=== PATIENT | male | born 2000 | race Caucasian/White ===

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

== ENCOUNTER 2023-04-05 21:52 | Emergency (ER) | payer BC ==
[~2023-04-05] VITALS: Ht 177.8 cm; Wt 72.6 kg
[~2023-04-05 21:52] MED LIST: HURRICAINE ONE1 EACH MT; QUET100 PO
[2023-04-05 22:15] VITALS: BP 125/82
[2023-04-05] MEDS ORDERED: CEPH500 PO (22:24)
== END 2023-04-05 22:40 | disposition home or self-care (01) ==
LOC: ER 21:52
DX: L03.115 Cellulitis of right lower limb (principal); F17.290 Nicotine dependence, other tobacco product, uncomplicated; Z79.899 Other long term (current) drug therapy
CPT/HCPCS: 99282; A9270

== ENCOUNTER → 2023-06-26 | Outpatient (CLI) | payer BC ==
[~2023-06-26] MED LIST changes: +CEPH500 PO
== END | disposition home or self-care (01) ==
LOC: LAB 17:45 → LAB SHORT 17:45
DX: L08.9 Local infection of the skin and subcutaneous tissue, unspecified (principal)
CPT/HCPCS: 87070; 87075; 87077; 87147; 87186; 87205

== ENCOUNTER 2025-05-25 16:17 | Emergency (ER) | payer BC ==
[~2025-05-25] VITALS: Ht 180.3 cm; Wt 77.1 kg
[2025-05-25] MEDS ORDERED: CEPH500 PO (19:07)
[2025-05-25 19:20] VITALS: BP 152/74
== END 2025-05-25 19:30 | disposition home or self-care (01) ==
LOC: ER 16:17
DX: S61.245A Puncture wound with foreign body of left ring finger without damage to nail, initial encounter (principal); F17.290 Nicotine dependence, other tobacco product, uncomplicated; W29.4XXA Contact with nail gun, initial encounter
CPT/HCPCS: 10120; 73140; 90471; 90715; 99283-25; A9270